=== PATIENT | female | born 1945 | race Caucasian/White ===

== ENCOUNTER 2016-12-21 16:13 | Inpatient (IN) | payer OTHER ==
[~2016-12-21] VITALS: Ht 162.6 cm; Wt 69.4 kg
[2016-12-21 17:03] LABS: EOSINOPHIL (%) 0.3 % (0-5); IMMATURE GRANULOCYTE (%) 0.5 % (0.0-0.7); INSTRUMENT ABS NEUTROPHIL CT 5.9 K/uL; LYMPHOCYTE COUNT 0.9 K/uL (1.0-2.8); MCH 30.5 PG (29.0-34.0); MCHC 33.7 G/DL (30.0-36.0); MCV 90.5 FL (83-99); MEAN PLAT.VOLUME 10.1 uM^3 (9.5-12.4); MONOCYTE COUNT 0.5 K/uL (0-0.8); NEUTROPHIL (%) 79.3 % (45-76); NEUTROPHIL COUNT 5.9 K/uL (1.8-6.4); PLATELET COUNT 164 K/uL (156-360); RBC DIS.WIDTH-CV 12.6 % (11.8-14.6); WHITE BLOOD COUNT 7.5 K/uL (4.1-10.2)
[2016-12-21 17:11] LABS: PTT 25.5 (25-32)
[2016-12-21 17:14] LABS: CHLORIDE 105 mEq/L (99-109); SODIUM 139 mEq/L (136-147)
[2016-12-21 17:16] LABS: GLUCOSE 109 mg/dL (70-99)
[2016-12-21 17:18] LABS: ANION GAP 11 MEQ/L (2-14)
[2016-12-21 17:20] LABS: GFR ESTIMATE (CALCULATED) > 59 mL/min/
[2016-12-21 17:21] LABS: UREA NITROGEN (BUN) 18 mg/dL (9-23)
[2016-12-21 17:26] LABS: TROP-I INTERPRETATION NEGATIVE; TROPONIN-I < 0.01 ng/mL (0.0-0.30)
[2016-12-21 17:51] LABS: ADD MIUA? YES; BILIRUBIN NEGATIVE; BLOOD SMALL; COLOR COLORLESS ((YELLOW)); GLUCOSE (STRIP) NEGATIVE; KETONES NEGATIVE; LEUKOCYTES TRACE; NITRITE NEGATIVE; PROTEIN (STRIP) NEGATIVE; SPECIFIC GRAVITY 1.002 (1.000-1.030); UROBILINOGEN 0.2 MG/DL (0.2-1.0)
[2016-12-21 18:11] LABS: BACTERIA NONE SEEN /HPF; EPITHELIAL CELLS NONE SEEN /HPF; MUCUS NONE SEEN /LPF; RED BLOOD CELLS NONE SEEN /HPF (0-5); UCUL ADDED? NO; WHITE BLOOD CELLS 0-5 /HPF (0-5)
[2016-12-21] MEDS ORDERED: CLOPIDOGREL75 MG PO (19:46)
[2016-12-21] MEDS ORDERED: MIRTAZAPINE30 MG PO (19:46)
[2016-12-21] MEDS ORDERED: CRESTOR40 MG PO (19:46)
[2016-12-21] MEDS ORDERED: AMLODIPINE BESY10 MG PO (19:46)
[2016-12-21] MEDS ORDERED: CILOSTAZOL50 MG PO (19:46)
[2016-12-21] MEDS ORDERED: XANAX0.5 MG PO (19:47)
[2016-12-21] MEDS ORDERED: QUINAPRIL HCL40 MG PO (19:47)
[2016-12-21] MEDS ORDERED: METOPROLOL TART50 MG PO (19:47)
[2016-12-21 22:25] VITALS: BP 155/72
[2016-12-21 22:52] LABS: SAMPLE HEMOLYSIS CHECK 0; SAMPLE ICTERIC CHECK 0; SAMPLE LIPEMIA CHECK 0
[2016-12-21 22:58] LABS: HDL CHOLESTEROL 40 MG/DL (Desirable>=50); LDL CHOLESTEROL 102 mg/dL (Desirable<100); NON-HDL CHOLESTEROL 134 mg/dL (Desirable<160); TOTAL CHOLESTEROL 174 mg/dL (Desirable<200); TRIGLYCERIDES 159 MG/DL (Normal: <150)
[2016-12-22 03:54] VITALS: BP 133/62
[2016-12-22 06:30] LABS: Estimated Average Glucose 108 mg/dL (70-123); HEMOGLOBIN A1c (GLYCOHEMOGLOB) 5.4 % HGB (Below 5.7)
[2016-12-22 07:28] VITALS: BP 102/49
[2016-12-22 11:07] VITALS: BP 116/56
[2016-12-22 15:57] VITALS: BP 159/72
[2016-12-22 19:50] VITALS: BP 138/60
[2016-12-23] VITALS (8 sets, daily range): BP systolic 89–156; BP diastolic 48–68
[2016-12-23 06:28] LABS: ANION GAP 7 MEQ/L (2-14); CHLORIDE 106 MEQ/L (99-109); GFR ESTIMATE (CALCULATED) 52 mL/min/; GLUCOSE 103 mg/dL (70-99); POTASSIUM 4.1 MEQ/L (3.7-5.4); SAMPLE HEMOLYSIS CHECK 0; SAMPLE ICTERIC CHECK 0; SAMPLE LIPEMIA CHECK 0; SODIUM 139 MEQ/L (136-147); UREA NITROGEN (BUN) 22 mg/dL (9-23)
[2016-12-23 06:54] LABS: EOSINOPHIL (%) 3.3 % (0-5); EOSINOPHIL COUNT 0.2 K/uL (0-0.3); HEMATOCRIT 34.1 % (36.0-46.0); INSTRUMENT ABS NEUTROPHIL CT 2.2 K/uL; LYMPHOCYTE COUNT 1.6 K/uL (1.0-2.8); MCH 30.4 PG (29.0-34.0); MCHC 33.7 G/DL (30.0-36.0); MCV 90.2 FL (83-99); MEAN PLAT.VOLUME 10.1 uM^3 (9.5-12.4); MONOCYTE COUNT 0.6 K/uL (0-0.8); NEUTROPHIL (%) 48.3 % (45-76); NEUTROPHIL COUNT 2.2 K/uL (1.8-6.4); PLATELET COUNT 176 K/uL (156-360); RBC DIS.WIDTH-CV 12.8 % (11.8-14.6); RBC DIS.WIDTH-SD 41.5 % (39-53); RED BLOOD COUNT 3.78 M/uL (3.80-5.20)
[2016-12-23 06:58] LABS: WHITE BLOOD COUNT 4.5 K/uL (4.1-10.2)
[2016-12-24 05:15] VITALS: BP 142/65
[2016-12-24 05:52] LABS: EOSINOPHIL (%) 2.5 % (0-5); EOSINOPHIL COUNT 0.1 K/uL (0-0.3); HEMATOCRIT 32.3 % (36.0-46.0); IMMATURE GRANULOCYTE (%) 0.2 % (0.0-0.7); INSTRUMENT ABS NEUTROPHIL CT 2.5 K/uL; LYMPHOCYTE COUNT 1.6 K/uL (1.0-2.8); MCH 31.7 PG (29.0-34.0); MCHC 34.1 G/DL (30.0-36.0); MCV 93.1 FL (83-99); MEAN PLAT.VOLUME 10.1 uM^3 (9.5-12.4); MONOCYTE (%) 11.6 % (3-12); MONOCYTE COUNT 0.6 K/uL (0-0.8); NEUTROPHIL COUNT 2.5 K/uL (1.8-6.4); PLATELET COUNT 180 K/uL (156-360); RBC DIS.WIDTH-CV 13.3 % (11.8-14.6); RED BLOOD COUNT 3.47 M/uL (3.80-5.20); WHITE BLOOD COUNT 4.8 K/uL (4.1-10.2)
[2016-12-24 07:14] LABS: ANION GAP 8 MEQ/L (2-14); CHLORIDE 114 MEQ/L (99-109); GFR ESTIMATE (CALCULATED) 58 mL/min/; GLUCOSE 100 mg/dL (70-99); POTASSIUM 4.4 MEQ/L (3.7-5.4); SAMPLE HEMOLYSIS CHECK 0; SAMPLE ICTERIC CHECK 0; SAMPLE LIPEMIA CHECK 0; SODIUM 144 MEQ/L (136-147); UREA NITROGEN (BUN) 19 mg/dL (9-23)
[2016-12-24 07:32] VITALS: BP 133/61
[2016-12-24 11:50] VITALS: BP 161/74
[2016-12-24 16:00] VITALS: BP 151/70
[2016-12-24 20:25] VITALS: BP 159/78
[2016-12-24 23:30] VITALS: BP 134/81
[2016-12-25 03:34] VITALS: BP 147/73
[2016-12-25 07:05] LABS: EOSINOPHIL (%) 3.2 % (0-5); EOSINOPHIL COUNT 0.2 K/uL (0-0.3); HEMATOCRIT 38.7 % (36.0-46.0); IMMATURE GRANULOCYTE (%) 0.5 % (0.0-0.7); INSTRUMENT ABS NEUTROPHIL CT 3.5 K/uL; LYMPHOCYTE COUNT 1.8 K/uL (1.0-2.8); MCH 30.2 PG (29.0-34.0); MCHC 32.6 G/DL (30.0-36.0); MCV 92.8 FL (83-99); MONOCYTE (%) 11.5 % (3-12); MONOCYTE COUNT 0.7 K/uL (0-0.8); NEUTROPHIL (%) 55.9 % (45-76); NEUTROPHIL COUNT 3.5 K/uL (1.8-6.4); PLATELET COUNT 232 K/uL (156-360); RBC DIS.WIDTH-CV 13.2 % (11.8-14.6); RBC DIS.WIDTH-SD 44.8 % (39-53); WHITE BLOOD COUNT 6.2 K/uL (4.1-10.2)
[2016-12-25 07:11] LABS: RED BLOOD COUNT 4.17 M/uL (3.80-5.20)
[2016-12-25 07:40] VITALS: BP 165/76
[2016-12-25 08:04] LABS: ANION GAP 8 MEQ/L (2-14); CHLORIDE 111 MEQ/L (99-109); GFR ESTIMATE (CALCULATED) 58 mL/min/; GLUCOSE 96 mg/dL (70-99); POTASSIUM 4.1 MEQ/L (3.7-5.4); SAMPLE HEMOLYSIS CHECK 0; SAMPLE ICTERIC CHECK 0; SAMPLE LIPEMIA CHECK 0; SODIUM 145 MEQ/L (136-147); UREA NITROGEN (BUN) 18 mg/dL (9-23)
[2016-12-25 15:15] VITALS: BP 184/88
[2016-12-25 23:44] VITALS: BP 164/74
[2016-12-26 07:33] VITALS: BP 158/72
[2016-12-26 12:01] LABS: C DIFF TOXIN NEGATIVE (NEGATIVE)
[2016-12-26 12:02] LABS: PROBE CHECK PASS; SPECIMEN PROCESSING CONTROL PASS
[2016-12-26 15:32] VITALS: BP 160/82
[2016-12-27] VITALS: BP 120/58
[2016-12-27 08:48] VITALS: BP 161/72
[2016-12-27 11:57] VITALS: BP 176/77
[2016-12-27 15:36] VITALS: BP 167/65
[2016-12-27 20:01] VITALS: BP 162/72
[2016-12-27 23:12] VITALS: BP 151/76
[2016-12-28 03:44] VITALS: BP 148/77
[2016-12-28 07:11] LABS: ANION GAP 8 MEQ/L (2-14); CHLORIDE 109 MEQ/L (99-109); GFR ESTIMATE (CALCULATED) > 59 mL/min/; GLUCOSE 91 mg/dL (70-99); POTASSIUM 4.4 MEQ/L (3.7-5.4); SAMPLE HEMOLYSIS CHECK 0; SAMPLE ICTERIC CHECK 0; SAMPLE LIPEMIA CHECK 0; SODIUM 138 MEQ/L (136-147); UREA NITROGEN (BUN) 26 mg/dL (9-23)
[2016-12-28 07:30] VITALS: BP 156/84; BP 94/64
[2016-12-28 11:22] VITALS: BP 146/64
[2016-12-28 12:00] VITALS: BP 146/64
[2016-12-28 16:30] VITALS: BP 188/80
[2016-12-28 19:56] VITALS: BP 166/72
[2016-12-29 08:12] VITALS: BP 141/61
[2016-12-29 11:14] VITALS: BP 172/71
[2016-12-29 16:33] VITALS: BP 160/70
[2016-12-29 19:39] VITALS: BP 106/51
[2016-12-30 08:40] VITALS: BP 124/61
[2016-12-30 11:58] VITALS: BP 126/60
[2016-12-30 15:44] VITALS: BP 161/64
[2016-12-30 18:33] VITALS: BP 140/64
[2016-12-31 03:49] VITALS: BP 120/56
[2016-12-31 08:00] VITALS: BP 155/67
[2016-12-31 15:41] VITALS: BP 125/60
[2016-12-31 19:48] VITALS: BP 133/64
[2017-01-01 00:28] VITALS: BP 114/56
[2017-01-01 07:29] VITALS: BP 162/71
[2017-01-01 11:54] VITALS: BP 132/53
[2017-01-01 15:53] VITALS: BP 135/60
[2017-01-01 22:45] VITALS: BP 131/61
[2017-01-02] VITALS (8 sets, daily range): BP systolic 71–124; BP diastolic 33–59
[2017-01-02 08:54] LABS: MCH 30.9 PG (29.0-34.0); MCHC 32.8 G/DL (30.0-36.0); MCV 94.2 FL (83-99); MEAN PLAT.VOLUME 10.5 uM^3 (9.5-12.4); PLATELET COUNT 186 K/uL (156-360); RBC DIS.WIDTH-CV 13.5 % (11.8-14.6); RBC DIS.WIDTH-SD 46.5 % (39-53); RED BLOOD COUNT 3.82 M/uL (3.80-5.20); WHITE BLOOD COUNT 6.4 K/uL (4.1-10.2)
[2017-01-02 09:03] LABS: CHLORIDE 107 mEq/L (99-109); POTASSIUM 4.4 mEq/L (3.7-5.4); SODIUM 138 mEq/L (136-147)
[2017-01-02 09:04] LABS: GLUCOSE 110 mg/dL (70-99)
[2017-01-02 09:06] LABS: ANION GAP 7 MEQ/L (2-14)
[2017-01-02 09:08] LABS: GFR ESTIMATE (CALCULATED) 58 mL/min/
[2017-01-02 09:09] LABS: UREA NITROGEN (BUN) 19 mg/dL (9-23)
[2017-01-02] MEDS ORDERED: LIDOCAINE700 MG TD (15:58)
[2017-01-02] MEDS ORDERED: OXAYDO5 MG PO (16:23)
== END 2017-01-02 17:12 | disposition home or self-care (01) | DRG 515 ==
LOC: EME 16:13 → 5SOUTH 20:38 → EDOF 20:38 → 5SOUTH 21:59 → 3EAST 01-01 22:33
PROVIDERS: Emergency Medicine; Internal Medicine; Physician Assistant; Physician Assistant Medical
PROC: 0QU03JZ Supplement Lumbar Vertebra with Synthetic Substitute, Percutaneous Approach (ICD-10-PCS; principal; 2017-01-01)
DX: S32.018A Other fracture of first lumbar vertebra, initial encounter for closed fracture (principal); W18.30XA Fall on same level, unspecified, initial encounter; Y93.H2 Activity, gardening and landscaping; Y92.007 Garden or yard of unspecified non-institutional (private) residence as the place of occurrence of the external cause; I65.21 Occlusion and stenosis of right carotid artery; I61.9 Nontraumatic intracerebral hemorrhage, unspecified; I35.0 Nonrheumatic aortic (valve) stenosis; R55 Syncope and collapse; I95.9 Hypotension, unspecified; I12.9 Hypertensive chronic kidney disease with stage 1 through stage 4 chronic kidney disease, or unspecified chronic kidney disease; N18.3 Chronic kidney disease, stage 3 (moderate); I25.10 Atherosclerotic heart disease of native coronary artery without angina pectoris; I25.2 Old myocardial infarction; K52.9 Noninfective gastroenteritis and colitis, unspecified; E78.5 Hyperlipidemia, unspecified; I73.9 Peripheral vascular disease, unspecified; M10.9 Gout, unspecified; F32.9 Major depressive disorder, single episode, unspecified; F41.1 Generalized anxiety disorder; Z79.02 Long term (current) use of antithrombotics/antiplatelets; Z95.5 Presence of coronary angioplasty implant and graft; Z95.828 Presence of other vascular implants and grafts; Z90.710 Acquired absence of both cervix and uterus; Z87.891 Personal history of nicotine dependence
CPT/HCPCS: 70450; 70496; 70498; 71010; 72100; 72131; 73090; 73110; 73130; 76000; 80048; 80061; 81003; 83036; 83735; 84484; 85025; 85027; 85610; 85730; 87040; 87493; 93005; 93306; 93880; 99281; 99285; J0330; J0360; J0690; J1170; J1644; J1885; J2250; J2405; J2710; J3010; J3480; J7030

== ENCOUNTER 2017-11-09 15:28 | Emergency (ER) | payer OTHER ==
[~2017-11-09] VITALS: Ht 162.6 cm; Wt 60.9 kg
[~2017-11-09 15:28] MED LIST: AMLODIPINE BESY10 MG PO; CILOSTAZOL50 MG PO; CLOPIDOGREL75 MG PO; CRESTOR40 MG PO; LIDOCAINE700 MG TD; METOPROLOL TART50 MG PO; MIRTAZAPINE30 MG PO; OXAYDO5 MG PO; QUINAPRIL HCL40 MG PO; XANAX0.5 MG PO
[2017-11-09 15:47] VITALS: BP 147/81
[2017-11-09] MEDS ORDERED: LIDODERM 5% P1 PATCH TD (16:35)
[2017-11-09] MEDS ORDERED: PREDNISONE50 MG PO (16:35)
== END 2017-11-09 16:59 | disposition home or self-care (01) ==
LOC: EME 15:28
DX: S39.012A Strain of muscle, fascia and tendon of lower back, initial encounter (principal); M54.41 Lumbago with sciatica, right side; G89.29 Other chronic pain; I10 Essential (primary) hypertension; I25.2 Old myocardial infarction; F41.9 Anxiety disorder, unspecified; F32.9 Major depressive disorder, single episode, unspecified; Z87.891 Personal history of nicotine dependence; Z88.0 Allergy status to penicillin
CPT/HCPCS: 72100; 99281; 99283; J7512